=== PATIENT | female | born 1970 | race Caucasian/White ===

== ENCOUNTER → 2017-07-06 | Outpatient (CLI) | payer OTHER ==
[~2017-07-06] MED LIST: AMITRIPTYLINE H10 M1 PO; CENTRUM CHEWAB1 EACH PO; CENTRUM COMPLE1 EACH PO; IMITREX 50 MG T50 MG PO; LANSOPRAZOLE; LEVOTHYROXIN0.137 M1 PO; NORCO 7.5-3251 EACH PO; PREVACID30 MG PO; SKELAXIN 800 M800 M1 PO; TREXIMET 10-601 EACH PO; UNICOMPLEX M TA1 TA1 PO; WELCHOL 625 MG625 MG PO; ZOFRAN ODT4 MG SUBLING
== END ==
LOC: M.RAD 12:45
DX: Z12.31 Encounter for screening mammogram for malignant neoplasm of breast (principal)

== ENCOUNTER → 2018-07-25 | Outpatient (CLI) | payer OTHER | LOC: M.RAD 07-23 16:11 | DX: Z12.31 Encounter for screening mammogram for malignant neoplasm of breast (principal); N63.31 Unspecified lump in axillary tail of the right breast ==

== ENCOUNTER 2019-05-04 10:19 | Emergency (ER) | payer BC ==
[~2019-05-04] VITALS: Ht 154.9 cm; Wt 62.1 kg
[2019-05-04] MEDS ORDERED: CAMBIA50 MG PO (10:37)
[2019-05-04 11:37] LABS: ABSOLUTE BASOPHILS 0.1 thou/uL (0.0-0.2); ABSOLUTE EOSINOPHILS 0.1 thou/uL (0.0-0.7); ABSOLUTE LYMPHOCYTES 1.7 thou/uL (0.8-5.3); ABSOLUTE MONOCYTES 0.8 thou/uL (0.0-1.2); ABSOLUTE NEUTROPHILS 8.5 thou/uL (1.6-8.1); BASOPHILS 0.8 %; EOSINOPHILS 0.6 %; HEMATOCRIT 33.9 % (37.0-47.0); HEMOGLOBIN 11.5 gm/dL (12.0-15.0); LYMPHOCYTES 15.4 %; MCH 30.9 pg (26.0-34.0); MCHC 33.9 g/dL (28.0-37.0); MONOCYTES 7.2 %; MPV 7.4 fl. (7.2-11.1); NUCLEATED RBCS 0 /100WBC; PLATELET COUNT* 300 thou/uL (150-400); RBC 3.73 mil/uL (4.20-5.00); RDW-CV 13.7 % (10.5-14.5); WBC 11.2 thou/uL (4.0-11.0)
[2019-05-04 11:54] LABS: CALCIUM 8.4 mg/dL (8.5-10.1); CREATININE 0.7 mg/dL (0.6-1.3); POTASSIUM 4.2 mmol/L (3.5-5.1)
[2019-05-04 11:59] LABS: ALBUMIN 3.1 g/dL (3.4-5.0); TOTAL BILIRUBIN 0.5 mg/dL (<0.1-1.0); TOTAL PROTEIN 6.8 g/dL (6.4-8.2)
[2019-05-04 13:40] LABS: URINE BILIRUBIN NEGATIVE (Negative); URINE BLOOD TRACE (Negative); URINE CLARITY CLEAR; URINE COLOR YELLOW; URINE GLUCOSE-RANDOM NEGATIVE (Negative); URINE KETONES 1+ (Negative); URINE LEUKOCYTES-REFLEX NEGATIVE (Negative); URINE NITRITE-REFLEX NEGATIVE (Negative); URINE PROTEIN NEGATIVE (Negative); URINE SPECIFIC GRAVITY 1.015 (1.005-1.030)
[2019-05-04 19:02] VITALS: BP 122/77
== END 2019-05-04 19:02 | disposition short-term general hospital (02) ==
LOC: M.ERS 10:19
PROVIDERS: Personal Emergency Response Attendant
DX: R16.0 Hepatomegaly, not elsewhere classified (principal); K21.9 Gastro-esophageal reflux disease without esophagitis; Z90.49 Acquired absence of other specified parts of digestive tract; Z88.1 Allergy status to other antibiotic agents

== ENCOUNTER → 2019-10-16 | Outpatient (CLI) | payer BC ==
[~2019-10-16] MED LIST changes: +CAMBIA50 MG PO
== END ==
LOC: M.RAD 12:46
PROVIDERS: ATTEND Hospitalist
DX: Z12.31 Encounter for screening mammogram for malignant neoplasm of breast (principal)